=== PATIENT | female | born 1960 | race Caucasian/White ===

== ENCOUNTER 2020-06-28 09:50 | Inpatient (IN) | payer BC, MEDICARE ==
[~2020-06-28] VITALS: Ht 157.5 cm; Wt 82.5 kg
[~2020-06-28 09:50] MED LIST: AMBIEN 5MG TABLE5 MG; ASPIRIN 32325 MG/TAB PO; MEVACOR 20M20 MG/TAB PO; NICODERM C21 MG/PATC TOP; NITROSTAT0.4 MG/TAB SL; NOVLOG SC; PEPCID 20MG TAB20 MG PO; PLAVIX 75MG TAB75 MG PO; PRAVACHOL80 MG PO; RT ADVAIR HFA 2312 G IH; RT SPIRIVA18 MCG IH; SYNTHROID0.1 MG/TAB PO; TOPROL XL 25MG25 MG PO; TYLENOL 325MG325 MG PO
[2020-06-28] MEDS ORDERED: ASPIRIN 81M81 MG/TA2 PO (11:09)
[2020-06-28] MEDS ORDERED: STIOLTO RESPIMAT4 GM IH (11:12)
[2020-06-28] MEDS ORDERED: NEURONTIN300 MG/CAP PO (11:13)
[2020-06-28 11:15] LABS: INR 1.1 (0.8-3.0); PROTHROMBIN TIME 12.5 SECONDS (9.7-12.8)
[2020-06-28] MEDS ORDERED: PROVENTIL0.09 MG/A1 IH (11:15)
[2020-06-28 11:26] LABS: ALBUMIN 2.7 gm/dL (3.5-5.0); BILIRUBIN,TOTAL 0.2 mg/dL (0.0-1.0); CALCIUM 7.3 mg/dL (8.4-10.2); CREATININE, serum 0.53 (0.52-1.25); TOTAL PROTEIN 5.4 gm/dL (6.4-8.2)
[2020-06-28 11:36] LABS: TROPONIN-I 0.013 ng/mL (0.000-0.035)
[2020-06-28 11:37] LABS: HEMATOCRIT 48.3 % (37.0-47.0); HEMOGLOBIN 14.8 g/dl (12.5-16.0); MEAN CELL VOLUME 93 fl (80.0-100.0); MEAN CORPUSCULAR HEMOGLOBIN 29 pg (27.0-31.0); MEAN CORPUSCULAR HGB CONC 31 g/dl (33.0-37.0); MEAN PLATELET VOLUME 11.7 fl (7.4-10.4); PLATELET COUNT 154 K/mm3 (130-400); RED BLOOD COUNT 5.17 M/mm3 (4.10-5.30); REDCELL DISTRIBUTION WIDTH-CV 16.5 % (11.5-14.5)
[2020-06-28 11:55] LABS: TSH w REFLEX 1.82 uIU/mL (0.465-4.680)
[2020-06-28 12:16] LABS: BAND 4 % (0-10); EOSINOPHIL 1 % (0-4); LYMPHOCYTE 3 % (20.0-51.0); NEUTROPHILS 90 % (42.0-75.2)
[2020-06-28 12:17] LABS: ANISOCYTOSIS 1+; HYPOCHROMIA 1+; PLATELET ESTIMATE NORMAL (NORMAL)
[2020-06-28 12:24] LABS: POTASSIUM 2.6 mmol/L (3.4-5.0)
[2020-06-28 14:28] LABS: MAGNESIUM 41.6 mg/dL (1.6-2.3)
[2020-06-28] MEDS ORDERED: BROMFED DM COU118 ML PO (15:23)
[2020-06-28] MEDS ORDERED: LOPRESSOR 550 MG/TAB PO (15:24)
[2020-06-28] MEDS ORDERED: MOBIC15 MG PO (15:24)
[2020-06-28] MEDS ORDERED: LASIX 20MG TABL20 MG PO (15:24)
[2020-06-28 15:37] VITALS: BP 132/49; PULSE 78; TEMP 98.6
--- NOTE | 2020-06-28 17:06 | NUR ---
NOTIFIED RT THAT PT WAS TURNED UP TO 3L NC AND THAT A NEB SOLUTION ORDER WAS PLACED.
[2020-06-28 18:11] LABS: COLLECTION METHOD CLEAN CATCH
[2020-06-28 18:22] LABS: MUCOUS Present /lpf; PH 7 (5-8); SQUAMOUS EPITHELIAL 0-2 /hpf; URINE APPEARANCE Hazy; URINE BACTERIA Rare /hpf; URINE BILIRUBIN Negative (NEGATIVE); URINE BLOOD Negative (NEGATIVE); URINE COLOR Yellow; URINE GLUCOSE Negative (NEGATIVE); URINE KETONE Negative (NEGATIVE); URINE LEUKOCYTE ESTERASE Negative (NEGATIVE); URINE NITRATE Positive (NEGATIVE); URINE PROTEIN(semi-quant) Negative (NEGATIVE); URINE RBC 0-2 /hpf; URINE UROBILINOGEN Negative (NEGATIVE)
--- NOTE | 2020-06-28 18:22 | NUR ---
PT PLEASANT, LABORED BREATHING AT REST, PT AT 3L NC, PASSED BEDSIDE SWALLOW STUDY W/O CHOKING OR CLEARING OF THROAT, DINNER PRESENT, CALL LIGHT AT BEDSIDE, ADMISSION COMPLETED, NO OTHER NEEDS
[2020-06-28 19:48] VITALS: BP 148/58; PULSE 84; TEMP 99.7
[2020-06-28 20:23] LABS: ARTERIAL BLD GAS O2 SATURATION 94.6 % (92-100); ARTERIAL BLD GAS TCO2 CT 31.1; ARTERIAL BLOOD GAS BASE EXCESS 5.1 (-2-2); ARTERIAL BLOOD GAS HCO3 29.8 meq/L (22-26); ARTERIAL BLOOD GAS PCO2 43.8 mmHg (35-45); ARTERIAL BLOOD GAS PO2 70.2 mmHg (80-100); ARTERIAL BLOOD GAS pH 7.45 (7.35-7.45)
[2020-06-29 00:23] VITALS: BP 153/49; PULSE 65; TEMP 98.4
--- NOTE | 2020-06-29 00:35 | NUR ---
Patient assessed around 194. Alert and oriented x 4, and able to make needs known. Denies having pain and discomfort at this time. Peripheral INTs to right and left wrists. Patient's breathing shallow, labored, with tachypnea. Patient did not have oxygen on. Put on oxygen at 4 L/min via NC. Started at 83% on room air. Titrated up to 6 L/min via NC, and increased to 93%. Updated RT and NATACHA Marino. ABG obtained. Continues on oxygen at 6 L/min via NC at this time. RVP obtained and came back positive for Rhino/Entero virus. LS coarse crackles. Sputum thick and yellow. HRR. Telemetry in place: normal sinus. Capillary refill less than 3 seconds. Non-tenting skin turgor. BSAx4. No edema. Voices no questions, needs, or concerns at this time. Resting in bed with call light within reach.
[2020-06-29 02:58] VITALS: BP 148/55; PULSE 73; TEMP 98.7
--- NOTE | 2020-06-29 06:06 | NUR ---
Continues on oxygen at 6 L/min via high flow nasal canula. No changes on telemetry this shift. Patient has been calling for assistance with going to the bathroom. Voices no questions, needs, or concerns at this time. Resting in bed with call light within reach.
[2020-06-29 06:46] LABS: HEMATOCRIT 44.2 % (37.0-47.0); HEMOGLOBIN 13.7 g/dl (12.5-16.0); MEAN CELL VOLUME 92 fl (80.0-100.0); MEAN CORPUSCULAR HEMOGLOBIN 29 pg (27.0-31.0); MEAN CORPUSCULAR HGB CONC 31 g/dl (33.0-37.0); MEAN PLATELET VOLUME 11.7 fl (7.4-10.4); PLATELET COUNT 147 K/mm3 (130-400); RED BLOOD COUNT 4.81 M/mm3 (4.10-5.30); REDCELL DISTRIBUTION WIDTH-CV 16.3 % (11.5-14.5)
[2020-06-29 06:59] LABS: ALBUMIN 3.4 gm/dL (3.5-5.0); BILIRUBIN,TOTAL 0.8 mg/dL (0.0-1.0); CALCIUM 9.1 mg/dL (8.4-10.2); CHOLESTEROL RISK RATIO 2.6; CREATININE, serum 0.64 (0.52-1.25); MAGNESIUM 2.3 mg/dL (1.6-2.3); POTASSIUM 4.8 mmol/L (3.4-5.0); TOTAL PROTEIN 6.7 gm/dL (6.4-8.2)
[2020-06-29 07:08] LABS: TROPONIN-I 0.241 ng/mL (0.000-0.035)
[2020-06-29 07:39] LABS: BAND 4 % (0-10); LYMPHOCYTE 6 % (20.0-51.0); PLATELET ESTIMATE NORMAL (NORMAL)
[2020-06-29 07:45] LABS: NEUTROPHILS 88 % (42.0-75.2)
[2020-06-29 08:00] VITALS: BP 130/53; PULSE 72; TEMP 98.4
--- NOTE | 2020-06-29 08:30 | NUR ---
PT PLEASANT, PT AOX4, PT REPORTS FEELING LIKE SHE IS BREATHING EASIER, LUNG SOUNDS STILL COARSE WITH AUSCULTAION, PT ON 6L NC, FRESH ICE WATER BROUGHT IN FOR PT IN AM, MEDICATIONS GIVEN, VITALS REVIEWED, CALL LIGHT WITHIN REACH, EXTENSION TUBING ON OXYGEN, NO OTHER NEEDS
[2020-06-29 11:15] VITALS: BP 144/57; PULSE 62; TEMP 98.2
--- NOTE | 2020-06-29 13:55 | NUR ---
AIRAM met with the patient and her , Andrew (ph#[phone]), to discuss discharge plan. The patient lives in [place] with Andrew and their son. She reports independence with ADLs and does not have any DME. The patient's primary care provider is NELI Lane and she receives her medications from [facility] in . She reports no difficulties obtaining her meds. The patient does not have a DPOA-HC and she was not interested in completing one at this time. The patient plans to return home with her upon discharge. The patient is currently on 5 liters of oxygen and she does not have home oxygen. SW to continue to monitor. *Discharge plan: home with *
[2020-06-29 15:48] VITALS: BP 132/65; PULSE 68; TEMP 98.7
--- NOTE | 2020-06-29 17:31 | NUR ---
PT DILIP, TOLUX4, INDEPENDENT IN ROOM, HAS BEEN ON 5L NC DURING THE DAY, ECHO PERFORMED, WILL START SOTALOL TONIGHT, ANTIBIOTICS GIVEN ALONG WITH OTHER MEDICATIONS, NO C/O PAIN OR DISCOMFORT, AT BEDSIDE, NO OTHER NEEDS.
[2020-06-29 19:54] VITALS: BP 143/56; PULSE 68; TEMP 98.8
--- NOTE | 2020-06-29 23:49 | NUR ---
Patient assessed around 2134. Alert and oriented, and able to make needs known. Denies having pain and discomfort at this time. Peripheral INTs to bilateral wrists flushed, and are without redness, warmth, swelling, and pain. Denies having SOB and dyspnea. LS coarse crackles. On oxygen at 5 L/min via NC. Moist cough. HRR. Telemetry in place: normal sinus. Capillary refill less than 3 seconds. Non-tenting skin turgor. BSAx4. Abdomen soft and non-tender. No edema. Voices no questions, needs, or concerns at this time. Resting in bed with call light within reach.
[2020-06-30] VITALS (7 sets, daily range): BP systolic 122–162; BP diastolic 58–97; PULSE 58–135; TEMP 97.7–98.5
--- NOTE | 2020-06-30 01:32 | NUR ---
Patient has gone back into A-fib on telemetry. Order placed for EKG and called RT. Results was A-fib RVR with rate of 119. Updated Jamila. Patient asymptomatic.
--- NOTE | 2020-06-30 05:35 | NUR ---
Patient has been resting in bed with call light within reach. Continues to be in A-fib, HR 110-130s. Asymptomatic. Voices no questions, needs, or concerns at this time. Resting in bed with call light within reach.
[2020-06-30 06:54] LABS: HEMOGLOBIN 13.7 g/dl (12.5-16.0); MEAN CELL VOLUME 93 fl (80.0-100.0); MEAN CORPUSCULAR HEMOGLOBIN 28 pg (27.0-31.0); MEAN CORPUSCULAR HGB CONC 30 g/dl (33.0-37.0); MEAN PLATELET VOLUME 12.3 fl (7.4-10.4); PLATELET COUNT 164 K/mm3 (130-400); RED BLOOD COUNT 4.82 M/mm3 (4.10-5.30); REDCELL DISTRIBUTION WIDTH-CV 16.1 % (11.5-14.5)
[2020-06-30 07:09] LABS: CREATININE, serum 0.66 (0.52-1.25); MAGNESIUM 2.4 mg/dL (1.6-2.3); POTASSIUM 4.7 mmol/L (3.4-5.0)
[2020-06-30 07:39] LABS: BAND 1 % (0-10); LYMPHOCYTE 12 % (20.0-51.0); NEUTROPHILS 84 % (42.0-75.2)
[2020-06-30 07:40] LABS: ANISOCYTOSIS 1+; HYPOCHROMIA 3+; PLATELET ESTIMATE NORMAL (NORMAL)
--- NOTE | 2020-06-30 08:15 | NUR ---
Shift assessment complete. Pt had just started eating breakfast when made NPO, tray removed from room and pt informed of NPO until possible procedure. Wearing 5 lpm O2 NC, doing breathing treatment w/RT at this time. Denies pain/chest pain/SOA/dizziness this AM. Heart rhythm remains in Afib per tele, rate elevated in 110s. Breathing relaxed and unlabored, lung sounds coarse. A&Ox4. Denies needs. Continuing to monitor.
[2020-07-01 00:39] VITALS: BP 137/58; PULSE 50
[2020-07-01 05:07] VITALS: BP 143/65; PULSE 48; TEMP 97.9
[2020-07-01 06:33] LABS: HEMATOCRIT 44.5 % (37.0-47.0); HEMOGLOBIN 13.7 g/dl (12.5-16.0); MEAN CELL VOLUME 93 fl (80.0-100.0); MEAN CORPUSCULAR HEMOGLOBIN 29 pg (27.0-31.0); MEAN CORPUSCULAR HGB CONC 31 g/dl (33.0-37.0); MEAN PLATELET VOLUME 11.9 fl (7.4-10.4); PLATELET COUNT 165 K/mm3 (130-400); RED BLOOD COUNT 4.79 M/mm3 (4.10-5.30); REDCELL DISTRIBUTION WIDTH-CV 15.9 % (11.5-14.5)
[2020-07-01 06:41] LABS: CALCIUM 9.2 mg/dL (8.4-10.2); CREATININE, serum 0.68 (0.52-1.25); MAGNESIUM 2.2 mg/dL (1.6-2.3); POTASSIUM 4.5 mmol/L (3.4-5.0)
[2020-07-01 06:58] LABS: BAND 1 % (0-10); HYPOCHROMIA 3+; LYMPHOCYTE 12 % (20.0-51.0); MYELOCYTE 1 % (0-0); NEUTROPHILS 83 % (42.0-75.2); PLATELET ESTIMATE NORMAL (NORMAL)
[2020-07-01 06:59] LABS: ANISOCYTOSIS 1+
--- NOTE | 2020-07-01 07:45 | NUR ---
Shift assessment complete. Pt up sitting at window bench. Requests shower this AM after breakfast. O2 sats stable at 96% on 3 lpm HFNC. Breathing mildly tachypnic after ambulating around room. Denies SOA this morning. Wheezing heard upon auscultation. Denies pain or dizziness. Call light in reach.
[2020-07-01 07:48] VITALS: BP 148/60; PULSE 53; TEMP 97.4
[2020-07-01 11:09] LABS: IRON,SERUM 89 ug/dL (35-150)
[2020-07-01 11:19] LABS: TOTAL IRON BINDING CAPACITY 317 ug/dL (265-497)
[2020-07-01 13:04] VITALS: BP 144/61; PULSE 47; TEMP 97.3
[2020-07-01 17:25] VITALS: BP 154/79; PULSE 55; TEMP 98.4
--- NOTE | 2020-07-01 21:20 | NUR ---
Sitting up in bed, resting quietly, denies pain, Bilateral lung sounds upper and lower with audible wheeze noted, O2@3L per NC in use, SHOB noted on exertion, no swelling noted to bue or ble, denies issues with bladder or bowel, call benjamin w/i reach, telemetry in use, updated on plan of care.
[2020-07-01 22:18] VITALS: BP 143/49; PULSE 45; TEMP 97.8
[2020-07-02 01:30] VITALS: BP 141/59; PULSE 44; TEMP 97.9
--- NOTE | 2020-07-02 02:30 | NUR ---
Telemetry notfied this nurse of ania in the high 30's to low 40's, patient is asymptomitic, call placed to jeremy cullen - please continue to monitor and call cardiology in am.
[2020-07-02 04:06] VITALS: BP 158/52; PULSE 45; TEMP 98
--- NOTE | 2020-07-02 06:33 | NUR ---
Paged Dr. Del Valle re: overnight bradycardia- awaiting return call.
[2020-07-02 07:39] LABS: HEMATOCRIT 44.3 % (37.0-47.0); HEMOGLOBIN 13.6 g/dl (12.5-16.0); MEAN CELL VOLUME 92 fl (80.0-100.0); MEAN CORPUSCULAR HEMOGLOBIN 28 pg (27.0-31.0); MEAN CORPUSCULAR HGB CONC 31 g/dl (33.0-37.0); MEAN PLATELET VOLUME 11.2 fl (7.4-10.4); PLATELET COUNT 173 K/mm3 (130-400); REDCELL DISTRIBUTION WIDTH-CV 15.7 % (11.5-14.5)
[2020-07-02 07:55] LABS: CALCIUM 9.3 mg/dL (8.4-10.2); CREATININE, serum 0.65 (0.52-1.25); MAGNESIUM 2.1 mg/dL (1.6-2.3); POTASSIUM 4.5 mmol/L (3.4-5.0)
--- NOTE | 2020-07-02 08:00 | NUR ---
pt at rest in bed O2 TURNED OFF. SPO2 87% ON ROOM AIR. O2 BACK ON @ 3 LPM SPO2 95%
[2020-07-02 08:10] LABS: ANISOCYTOSIS 1+; BAND 1 % (0-10); BASOPHIL 1 % (0-2); HYPOCHROMIA 3+; LYMPHOCYTE 6 % (20.0-51.0); METAMYELOCYTE 1 % (0-0); NEUTROPHILS 88 % (42.0-75.2); PLATELET ESTIMATE NORMAL (NORMAL)
[2020-07-02 08:33] VITALS: BP 151/54; PULSE 67; TEMP 98.2
[2020-07-02] MEDS ORDERED: MELATIN 3 MG-11 TAB PO (08:34)
--- NOTE | 2020-07-02 11:56 | NUR ---
Assessment completed, alert/oriented, vital signs stable/ bradycardic but asymptomatic and hospitalist is aware, holding cardizem and continuin Sotalol for now, patient is still pretty wheezy and lungs are tight/ still requiring 3L. o2, switchin to IV steroids for now, patient up independently, denies other needs at this time, will coninue to fatoumata
[2020-07-02 12:11] VITALS: BP 152/52; PULSE 50; TEMP 98.3
[2020-07-02 16:34] VITALS: BP 153/62; PULSE 47; TEMP 98.1
--- NOTE | 2020-07-02 19:03 | NUR ---
Awake, alert, oriented x 4, independently ambulatory in room, O2@2L per NC- tolerating well, updated on plan of care, patient has a firm plan to stop smoking, no s/s of hypo/hyper glycemia, telemetry in use SR 57.
[2020-07-02 20:28] VITALS: BP 156/57; PULSE 50; TEMP 97.6
[2020-07-03 00:15] VITALS: BP 151/56; PULSE 47; TEMP 98.1
[2020-07-03 04:40] VITALS: BP 164/50; PULSE 46; TEMP 97.8
[2020-07-03 06:21] LABS: HEMATOCRIT 44.8 % (37.0-47.0); MEAN CELL VOLUME 92 fl (80.0-100.0); MEAN CORPUSCULAR HEMOGLOBIN 29 pg (27.0-31.0); MEAN CORPUSCULAR HGB CONC 31 g/dl (33.0-37.0); MEAN PLATELET VOLUME 11.9 fl (7.4-10.4); PLATELET COUNT 162 K/mm3 (130-400); RED BLOOD COUNT 4.87 M/mm3 (4.10-5.30); REDCELL DISTRIBUTION WIDTH-CV 15.5 % (11.5-14.5)
--- NOTE | 2020-07-03 06:28 | NUR ---
Rested quietly throughout night, denies pain, O2@2L per NC, no s/s of hypo/hyper glycemia, updated on plan of care.
[2020-07-03 06:46] LABS: CALCIUM 9.3 mg/dL (8.4-10.2); CREATININE, serum 0.63 (0.52-1.25); MAGNESIUM 2.1 mg/dL (1.6-2.3); POTASSIUM 4.4 mmol/L (3.4-5.0)
--- NOTE | 2020-07-03 07:00 | NUR ---
Report received form JESSE Vásquez. PT in bed resting, denies needs, brendon galarza to monitor.
[2020-07-03 07:42] VITALS: BP 114/61; PULSE 98; TEMP 97.8
[2020-07-03 07:53] LABS: BAND 3 % (0-10); LYMPHOCYTE 5 % (20.0-51.0); MYELOCYTE 1 % (0-0); NEUTROPHILS 89 % (42.0-75.2)
[2020-07-03 07:57] LABS: PLATELET ESTIMATE NORMAL (NORMAL); TARGET CELLS 1+
[2020-07-03 08:07] VITALS: BP 152/64; PULSE 59; TEMP 97.8
--- NOTE | 2020-07-03 10:45 | NUR ---
Report from JESSE Klein. Pt ambulating in room with steady gait, requesting discharge today, denies further needs. Call light in reach.
--- NOTE | 2020-07-03 10:53 | NUR ---
Assessment charted. PT doing well, really wants to discharge today. Feeling well, 02 at 2LNC. RUC wheezes expiratory but PEARL clear. Denies pain. Wants to stop smoking at home and idsucssed plan for that. Denies pain. INT to RW. Report given to JESSE Arnold who will resume care.
[2020-07-03] MEDS ORDERED: ELIQUIS 5MG PO (11:17)
[2020-07-03] MEDS ORDERED: LASIX 20MG TABL20 MG PO (11:17)
[2020-07-03] MEDS ORDERED: NICODERM C21 MG/PATC TD (11:17)
[2020-07-03] MEDS ORDERED: PREDNISONE10 MG PO (11:17)
[2020-07-03] MEDS ORDERED: PULMICORT90 MCG/Act IH (11:17)
[2020-07-03] MEDS ORDERED: DOXYCYCLINE 10100 MG PO (11:17)
[2020-07-03] MEDS ORDERED: BETAPACE 120MG120 MG PO (11:17)
[2020-07-03] MEDS ORDERED: OMNICEF 300MG300 MG PO (11:17)
[2020-07-03 11:34] VITALS: BP 176/65; PULSE 48; TEMP 97.6
--- NOTE | 2020-07-03 14:54 | NUR ---
Certified Surgical First Assistant attended clinical rounds with the team. The patient is to tentatively discharge home with , Andrew today, 07/03. An exercise oximetry and the patient qualifies for oxygen. The patient chose is [facility]. Referral faxed. Oxygen tank delivered. The patient to have home health services. SW provided [employer]'s list of home health agencies. Referral faxed to [facility] for group home. Diana reports they are review the benefits and will inform this SW of acceptance or denial. AIRAM collaborated the above information with the team.
--- NOTE | 2020-07-03 15:00 | NUR ---
Telemetry and IV discontinued with tip intact. O2 has been delivered to pt. Discharge instructions reviewed with pt regarding new/changes to medications, follow-up appointments and lab orders. Pt verbalizes understanding, questions invited and answered. Pt discharged home, escorted out of facility via WC accompanied by SUPERVISOR WATERWORKS and pt's .
--- NOTE | 2020-07-04 16:13 | NUR ---
Diana from [facility] reports they cannot accept the patient for hh. Social Work Supervisor faxed referral to Neida Walsh . Awaiting screen. SW contacted Eliana with [facility], left message.
== END 2020-07-03 15:45 | disposition home or self-care (01) | DRG 308 ==
LOC: COL.ER 09:50 → ICU 11:56 → MEDICAL 14:46
PROVIDERS: Emergency Medicine; Internal Medicine; Nurse Practitioner Family; Physician Assistant; ADMIT Family Medicine
PROC: 5A2204Z Restoration of Cardiac Rhythm, Single (ICD-10-PCS; principal; 2020-06-28)
DX: I48.0 Paroxysmal atrial fibrillation (principal); J96.01 Acute respiratory failure with hypoxia; J18.1 Lobar pneumonia, unspecified organism; J18.9 Pneumonia, unspecified organism; E87.1 Hypo-osmolality and hyponatremia; J44.1 Chronic obstructive pulmonary disease with (acute) exacerbation; J44.0 Chronic obstructive pulmonary disease with (acute) lower respiratory infection; R65.10 Systemic inflammatory response syndrome (SIRS) of non-infectious origin without acute organ dysfunction; I50.30 Unspecified diastolic (congestive) heart failure; E03.9 Hypothyroidism, unspecified; E87.6 Hypokalemia; G62.9 Polyneuropathy, unspecified; I08.1 Rheumatic disorders of both mitral and tricuspid valves; I11.0 Hypertensive heart disease with heart failure; G47.33 Obstructive sleep apnea (adult) (pediatric); I25.10 Atherosclerotic heart disease of native coronary artery without angina pectoris; I27.20 Pulmonary hypertension, unspecified; I25.2 Old myocardial infarction; I73.9 Peripheral vascular disease, unspecified; E78.5 Hyperlipidemia, unspecified; B34.8 Other viral infections of unspecified site; F17.210 Nicotine dependence, cigarettes, uncomplicated; Z79.82 Long term (current) use of aspirin; Z95.5 Presence of coronary angioplasty implant and graft; Z95.820 Peripheral vascular angioplasty status with implants and grafts; Z88.6 Allergy status to analgesic agent
CPT/HCPCS: 99232-AI; 99233-AI; 99239; J0696; J1650; J2543; J2704; J2920; J3370; J3475; J3480; J7030; J7050; J7512; Q9967